=== PATIENT | male | born 1995 | race Caucasian/White ===

== ENCOUNTER 2022-12-07 17:07 | Emergency (ER) | payer OTHER ==
[2022-12-07 17:19] VITALS: TEMP 98; BMI 19.5
[2022-12-07] MEDS ORDERED: ONDANSETRON 4 MG/2 ML VIAL IVPUSH ONE ×2 (17:32→22:14)
[2022-12-07] MEDS ORDERED: morphine CARPU-JECT 4 MG/1 ML DISP.SYRIN IVPUSH ONE (17:32)
[2022-12-07] MEDS ORDERED: LACTATED RINGERS SOLUTION 1,000 ML IV STA (17:32)
[2022-12-07] MEDS ORDERED: morphine SULFATE 4 MG/ML VIAL ONE (17:50)
[2022-12-07] MEDS ORDERED: ONDANSETRON 4 MG/2 ML VIAL ONE ×2 (17:51→22:17)
[2022-12-07] MEDS ORDERED: HYDROmorphone HCL CARPU-JECT 2 MG/1 ML DISP.SYRIN IVPUSH ONE ×2 (18:26→22:14)
[2022-12-07] MEDS ORDERED: MIDAZOLAM HCL 2 MG/2 ML SINGLE DOSE VIAL IVPUSH ONE (18:26)
[2022-12-07] MEDS ORDERED: HURRICAINE SP EXT TUBE 1 EA EACH TP ONE (18:27)
[2022-12-07] MEDS ORDERED: LIDOCAINE VISCOUS 2% ORAL/TOP 15 ML UNIT-DOSE CUP MM ONE (18:27)
[2022-12-07] MEDS ORDERED: MIDAZOLAM HCL 2 MG/2 ML SINGLE DOSE VIAL ONE (18:28)
[2022-12-07] MEDS ORDERED: LIDOCAINE HCL 2% JELLY 6 ML TP ONE ×2 (18:29→18:32)
[2022-12-07] MEDS ORDERED: HYDROmorphone HCl 2 MG/ML VIAL ONE ×2 (18:29→22:17)
[2022-12-07] MEDS ORDERED: LIDOCAINE VISCOUS 2% ORAL/TOP 15 ML UNIT-DOSE CUP ONE (18:29)
[2022-12-07] MEDS ORDERED: BENZOCAINE 20% 57 GM BOTTLE TP ONE (18:30)
[2022-12-07] MEDS ORDERED: LIDOCAINE HCL 1%, 10 MG/ML (20ML VIAL) ONE (18:31)
[2022-12-07 19:36] LABS: BASO % 0.2 % (0-2.0); EOS % 1.6 % (0-4.5); HEMATOCRIT 48.8 % (35.4-49); HEMOGLOBIN 16.7 GM/dL (11.7-16.9); LYMPH % 8.4 % (8-40); MCH 29.4 pg (25.7-33.7); MCHC 34.3 g/dl (32.0-35.9); MEAN CELL VOLUME 85.7 fl (80-96); MEAN PLT VOLUME 7.1 fl (7.5-11.1); MONO % 6.8 % (3.8-10.2); PLATELET COUNT 445 10^3/uL (134-434); RDW 13.9 % (11.9-15.9); WHITE BLOOD COUNT 12.5 K/mm3 (4.0-10.0)
[2022-12-07 19:42] LABS: INR 1.03 (0.83-1.09); PROTHROMBIN TIME (PATIENT) 11.9 SEC (9.7-13.0)
[2022-12-07 19:44] LABS: ACTIVATED PTT 42.8 SECONDS (25.2-36.5)
[2022-12-07 19:56] LABS: ALBUMIN 4.8 g/dl (3.4-5.0); CALCIUM 10.1 mg/dL (8.5-10.1)
[2022-12-07 19:59] LABS: CREATININE 0.9 mg/dL (0.55-1.3)
[2022-12-07 20:00] LABS: BILIRUBIN,TOTAL 1.1 mg/dL (0.2-1)
[2022-12-07 20:01] LABS: TOT PROT 8.9 g/dl (6.4-8.2)
[2022-12-07] MEDS ORDERED: HYDROCORTISONE SOD SUCCINATE 100 MG/2 ML VIAL IVPB ONE (20:58)
[2022-12-07 22:09] LABS: MAGNESIUM 2.4 mg/dL (1.8-2.4)
[2022-12-07 22:11] VITALS: BP 123/73; PULSE 97; RESP 16
== END 2022-12-07 22:55 | disposition short-term general hospital (02) ==
LOC: JER 17:07
PROC: 3E033GC Introduction of Other Therapeutic Substance into Peripheral Vein, Percutaneous Approach (ICD-10-PCS; principal; 2022-12-07)
PROC: 3E033NZ Introduction of Analgesics, Hypnotics, Sedatives into Peripheral Vein, Percutaneous Approach (ICD-10-PCS; 2022-12-07)
PROC: 3E033NZ Introduction of Analgesics, Hypnotics, Sedatives into Peripheral Vein, Percutaneous Approach (ICD-10-PCS; 2022-12-07)
PROC: 3E0337Z Introduction of Electrolytic and Water Balance Substance into Peripheral Vein, Percutaneous Approach (ICD-10-PCS; 2022-12-07)
PROC: 3E033GC Introduction of Other Therapeutic Substance into Peripheral Vein, Percutaneous Approach (ICD-10-PCS; 2022-12-07)
PROC: 3E033NZ Introduction of Analgesics, Hypnotics, Sedatives into Peripheral Vein, Percutaneous Approach (ICD-10-PCS; 2022-12-07)
PROC: 3E033GC Introduction of Other Therapeutic Substance into Peripheral Vein, Percutaneous Approach (ICD-10-PCS; 2022-12-07)
PROC: 3E033GC Introduction of Other Therapeutic Substance into Peripheral Vein, Percutaneous Approach (ICD-10-PCS; 2022-12-07)
DX: K56.699 Other intestinal obstruction unspecified as to partial versus complete obstruction (principal); R11.10 Vomiting, unspecified; R19.7 Diarrhea, unspecified
CPT/HCPCS: 0241U-QW; 36415; 71045-TC-FY; 74177-TC; 80053; 83605; 83690; 83735; 85025; 85610; 85730; 86850; 86900; 86901; 99285-25

== ENCOUNTER 2023-03-05 14:03 | Emergency (ER) | payer OTHER ==
[2023-03-05 14:12] VITALS: BMI 20.3
[2023-03-05] MEDS ORDERED: ACETAMINOPHEN 1000 MG/100 ML BAG IVPB ONE (14:43)
[2023-03-05] MEDS ORDERED: SODIUM CHLORIDE 1,000 ML IV STA (14:43)
[2023-03-05] MEDS ORDERED: ONDANSETRON 4 MG/2 ML VIAL IVPUSH ONE (14:43)
[2023-03-05] MEDS ORDERED: FAMOTIDINE 20 MG/50 ML IVPB 20 MG/50 ML MG IVPB ONE ×2 (14:44→15:14)
[2023-03-05] MEDS ORDERED: MAG HYDROX/AL HYDROX/SIMETH 30 ML UNIT-DOSE CUP PO ONE (14:44)
[2023-03-05] MEDS ORDERED: HYDROmorphone HCl 2 MG/ML VIAL IVPUSH ONE ×2 (14:51→16:29)
[2023-03-05 15:08] LABS: BASO % 0.2 % (0-2.0); EOS % 0.2 % (0-4.5); HEMATOCRIT 51.1 % (35.4-49); LYMPH % 4.6 % (8-40); MCH 30.1 pg (25.7-33.7); MCHC 35.2 g/dl (32.0-35.9); MEAN CELL VOLUME 85.4 fl (80-96); MEAN PLT VOLUME 7.7 fl (7.5-11.1); MONO % 6.7 % (3.8-10.2); NEUT % 88.3 % (42.8-82.8); PLATELET COUNT 404 10^3/uL (134-434); RBC 5.98 M/mm3 (4.00-5.60); WHITE BLOOD COUNT 11.3 K/mm3 (4.0-10.0)
[2023-03-05] MEDS ORDERED: MAG HYDROX/AL HYDROX/SIMETH 30 ML UNIT-DOSE CUP ONE (15:14)
[2023-03-05] MEDS ORDERED: ACETAMINOPHEN INJECTION 100 ML IVPB ONE (15:14)
[2023-03-05] MEDS ORDERED: ONDANSETRON 4 MG/2 ML VIAL ONE (15:14)
[2023-03-05] MEDS ORDERED: HYDROmorphone HCl 2 MG/ML VIAL ONE ×2 (15:23→16:38)
[2023-03-05 15:24] LABS: POTASSIUM 4.8 mmol/L (3.5-5.1)
[2023-03-05 15:26] LABS: CALCIUM 10.9 mg/dL (8.5-10.1)
[2023-03-05 15:27] LABS: ALBUMIN 5.5 g/dl (3.4-5.0); BLOOD UREA NITROGEN 23.2 mg/dL (7-18)
[2023-03-05 15:29] LABS: CREATININE 1.7 mg/dL (0.55-1.3)
[2023-03-05 15:31] LABS: TOT PROT 9.9 g/dl (6.4-8.2)
[2023-03-05] MEDS ORDERED: LACTATED RINGERS SOLUTION 1000 ML INFUS.BAG IV ONE ×2 (15:55→16:18)
[2023-03-05 18:03] VITALS: RESP 14; TEMP 97.9
[2023-03-05 18:11] LABS: POTASSIUM 4.6 mmol/L (3.5-5.1)
[2023-03-05 18:13] LABS: BLOOD UREA NITROGEN 22.1 mg/dL (7-18)
[2023-03-05 18:16] LABS: CREATININE 1.1 mg/dL (0.55-1.3)
[2023-03-05 18:21] LABS: CALCIUM 8.7 mg/dL (8.5-10.1)
[2023-03-05 19:27] LABS: URINE COLOR YELLOW
[2023-03-05 19:28] LABS: PH,URINE 5.5 (5.0-8.0); URINE APPEARANCE CLEAR; URINE BILIRUBIN NEGATIVE (NEGATIVE); URINE GLUCOSE (UA) NEGATIVE (NEGATIVE); URINE KETONE 40 mg/dl (NEGATIVE); URINE LEUK ESTERASE NEGATIVE (NEGATIVE); URINE NITRITE NEGATIVE (NEGATIVE); URINE PROTEIN TRACE (NEGATIVE)
[2023-03-05 21:19] VITALS: BP 92/69; PULSE 72
== END 2023-03-05 21:22 | disposition home or self-care (01) ==
LOC: JER 14:03
PROC: 3E033GC Introduction of Other Therapeutic Substance into Peripheral Vein, Percutaneous Approach (ICD-10-PCS; principal; 2023-03-05)
PROC: 3E033NZ Introduction of Analgesics, Hypnotics, Sedatives into Peripheral Vein, Percutaneous Approach (ICD-10-PCS; 2023-03-05)
PROC: 3E033GC Introduction of Other Therapeutic Substance into Peripheral Vein, Percutaneous Approach (ICD-10-PCS; 2023-03-05)
PROC: 3E033GC Introduction of Other Therapeutic Substance into Peripheral Vein, Percutaneous Approach (ICD-10-PCS; 2023-03-05)
PROC: 3E033GC Introduction of Other Therapeutic Substance into Peripheral Vein, Percutaneous Approach (ICD-10-PCS; 2023-03-05)
PROC: 3E0337Z Introduction of Electrolytic and Water Balance Substance into Peripheral Vein, Percutaneous Approach (ICD-10-PCS; 2023-03-05)
DX: K56.609 Unspecified intestinal obstruction, unspecified as to partial versus complete obstruction (principal); R11.2 Nausea with vomiting, unspecified; Z20.822 Contact with and (suspected) exposure to COVID-19
CPT/HCPCS: 0241U-QW; 36415; 74177-TC; 80048; 80053; 81003; 83605; 83690; 85025; 87086; 99285-25; Q9967